=== PATIENT | male | born 1940 | race Caucasian/White ===

== ENCOUNTER 2022-05-06 14:54 | Emergency (ER) | payer OTHER ==
[2022-05-06 15:25] LABS: BASO % 0.2 % (0-2.0); EOS % 1.1 % (0-4.5); HEMATOCRIT 37.9 % (35.4-49); HEMOGLOBIN 12.3 GM/dL (11.7-16.9); LYMPH % 25.6 % (8-40); MCH 24.5 pg (25.7-33.7); MCHC 32.6 g/dl (32.0-35.9); MEAN CELL VOLUME 75.2 fl (80-96); MEAN PLT VOLUME 6.5 fl (7.5-11.1); MONO % 5.5 % (3.8-10.2); NEUT % 67.6 % (42.8-82.8); PLATELET COUNT 440 10^3/uL (134-434); RBC 5.04 M/mm3 (4.00-5.60); RDW 17.5 % (11.9-15.9); WHITE BLOOD COUNT 15.7 K/mm3 (4.0-10.0)
[2022-05-06] MEDS ORDERED: LABETALOL HCL 5 MG/1 ML (100MG/20 ML VIAL) IVPUSH ONE (15:32)
[2022-05-06 15:43] VITALS: BMI 30.1
[2022-05-06] MEDS ORDERED: ROCURONIUM BROMIDE 50 MG/5 ML SYRINGE IVPUSH ONE (15:44)
[2022-05-06 15:46] LABS: CHLORIDE 102 mmol/L (98-107); SODIUM 139 mmol/L (136-145)
[2022-05-06] MEDS ORDERED: ETOMIDATE 20 MG/10 ML VIAL IVPUSH ONE (15:46)
[2022-05-06 15:48] LABS: ALBUMIN 3.1 g/dl (3.4-5.0); ANION GAP 9 MMOL/L (8-16); BLOOD UREA NITROGEN 12.7 mg/dL (7-18); CALCIUM 8.6 mg/dL (8.5-10.1); CO2 29 mmol/L (21-32); GLUCOSE,RANDOM 182 mg/dL (74-106)
[2022-05-06 15:51] LABS: CREATININE 0.9 mg/dL (0.55-1.3); SGPT/ALT 21 U/L (13-61)
[2022-05-06 15:52] LABS: SGOT/AST 34 U/L (15-37)
[2022-05-06 15:53] LABS: BILIRUBIN,TOTAL 0.4 mg/dL (0.2-1)
[2022-05-06 15:54] LABS: ALK PHOS 119 U/L (45-117)
[2022-05-06 16:29] LABS: LACTIC ACID 2.9 mmol/L (0.4-2.0)
[2022-05-06] MEDS ORDERED: PROPOFOL 1,000,000 MCG/100 ML VIAL IVPB SCH (16:45)
[2022-05-06 17:46] VITALS: BP 171/98; PULSE 109; RESP 1
[2022-05-07 08:28] LABS: MAGNESIUM 2.1 mg/dL (1.8-2.4)
[2022-05-07 08:32] LABS: PHOSPHOROUS 3.2 mg/dL (2.5-4.9)
== END 2022-05-06 17:47 | disposition short-term general hospital (02) ==
LOC: JER 14:54
PROC: 0BH17EZ Insertion of Endotracheal Airway into Trachea, Via Natural or Artificial Opening (ICD-10-PCS; principal; 2022-05-06)
PROC: 3E033GC Introduction of Other Therapeutic Substance into Peripheral Vein, Percutaneous Approach (ICD-10-PCS; 2022-05-06)
DX: S06.369A Traumatic hemorrhage of cerebrum, unspecified, with loss of consciousness of unspecified duration, initial encounter (principal); S02.109A Fracture of base of skull, unspecified side, initial encounter for closed fracture; W19.XXXA Unspecified fall, initial encounter
CPT/HCPCS: 0241U-QW; 36415; 70450-TC; 71045-TC-FY; 71260-TC; 72125-TC; 72128-TC; 72131-TC; 74177-TC; 80053; 80307; 82962; 83605; 83735; 84100; 85025; 93005; 93010; 99291; 99292; Q9967